=== PATIENT | male | born 1965 | race Two or more races ===

== ENCOUNTER 2016-07-24 01:54 | Inpatient (IN) | payer BC ==
[2016-07-24] VITALS (8 sets, daily range): BP systolic 100–139; BP diastolic 61–89
[~2016-07-24] VITALS: Ht 180.3 cm; Wt 81.6 kg
[2016-07-24] MEDS ORDERED: LORazepam Inj 2mg/ml 1ml IV ONE (02:30)
[2016-07-24 03:03] LABS: BASOPHILS % (AUTO) 0.9 % (0.0-2.0); EOSINOPHILS % (AUTO) 0.2 % (0.0-3.0); LYMPHOCYTES % (AUTO) 12.4 % (20.0-45.0); MEAN CORPUSCULAR HEMOGLOBIN 28.3 PG (27.0-31.0); MEAN CORPUSCULAR HGB CONC 30.9 G/DL (32.0-36.0); MEAN CORPUSCULAR VOLUME 91 FL (80-99); MEAN PLATELET VOLUME 7.1 FL (6.5-10.1); NEUTROPHILS % (AUTO) 74.6 % (45.0-75.0); PLATELET COUNT 226 K/UL (150-450); RED BLOOD COUNT 5.45 M/UL (4.70-6.10); RED CELL DISTRIBUTION WIDTH 14.6 % (11.6-14.8)
[2016-07-24 03:15] LABS: ANION GAP 17 (5-15); CALCIUM 9.5 mg/dL (8.6-10.2); CARBON DIOXIDE 23 mEQ/L (20-30); CHLORIDE 97 mEQ/L (98-107); CREATININE 1.1 mg/dL (0.7-1.2); GLOMERULAR FILTRATION RATE > 60 mL/min (>60); HEMOLYSIS 24; POTASSIUM 4.6 mEQ/L (3.4-4.9); SODIUM 137 mEQ/L (135-145)
[2016-07-24] MEDS ORDERED: Midazolam 2mg/2ml Inj IVP ONE (04:15)
--- NOTE | 2016-07-24 05:47 | Emergency Room Report ---
History of Present Illness General Chief Complaint: Behavioral Complaint Source: Patient Present Illness HPI Patient presents stating that he has had increased paranoid feeling Palpitation Patient was clean from methamphetamines for a while and over the past 2-3 days has been on a binge He feels scared Denies any headache Denies any chest pain He did feel some mild palpitations initially Denies any vomiting or diarrhea Denies any homicidal or suicidal thoughts Allergies: Coded Allergies: No Known Allergies (Unverified , 07/24/16) Patient History Past Medical History: see triage record Pertinent Family History: none Reviewed Nursing Documentation: PMH: Agreed, PSxH: Agreed Nursing Documentation-PMH History Of Psychiatric Problem: Yes - anxiety Review of Systems All Other Systems: negative except mentioned in HPI Physical Exam Vital Signs Date Time Temp Pulse Resp B/P Pulse Ox O2 Delivery O2 Flow Rate FiO2 07/24/16 02:15 99.0 122 20 140/90 96 Room Air Sp02 EP Interpretation: reviewed, normal General Appearance: mild distress - Appears frightened and scared Head: normocephalic, atraumatic Eyes: bilateral eye EOMI, bilateral eye PERRL ENT: hearing grossly normal, normal pharynx, TMs + canals normal, uvula midline Neck: full range of motion, supple, no meningismus, no bony tend Respiratory: lungs clear, normal breath sounds, no rhonchi, no respiratory distress, no retraction, no accessory muscle use Cardiovascular #1: normal peripheral pulses, regular rate, rhythm, no edema, no gallop, no JVD, no murmur Gastrointestinal: normal bowel sounds, non tender, soft, no mass, no organomegaly, non-distended, no guarding, no hernia, no pulsatile mass, no rebound Genitourinary: no CVA tenderness Musculoskeletal: normal inspection Neurologic: oriented x3, responsive, 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 wheel 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 III-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 nml as tested, motor strength/ tone normal, sensory intact Psychiatric: no suicidal/homicidal ideation, anxious Skin: normal color, no rash, warm/dry, palpation normal Lymphatic: normal inspection, no adenopathy Medical Decision Making Diagnostic Impression: Primary Impression: Altered mental status Additional Impressions: Drug reaction Amphetamine abuse Amphetamine adverse reaction ER Course Patient had blood work obtained Is deemed to be complex requiring IV examination and hydration Patient received benzodiazepines Has done better however friend and family are here and the patient still feels uncomfortable Patient has further hydration obtained And will have continued inpatient care Labs Test 07/24/16 02:30 White Blood Count 7.0 K/UL (4.8-10.8) Red Blood Count 5.45 M/UL (4.70-6.10) Hemoglobin 15.4 G/DL (14.2-18.0) Hematocrit 49.9 % (42.0-52.0) Mean Corpuscular Volume 91 FL (80-99) Mean Corpuscular Hemoglobin 28.3 PG (27.0-31.0) Mean Corpuscular Hemoglobin Concent 30.9 G/DL (32.0-36.0) Red Cell Distribution Width 14.6 % (11.6-14.8) Platelet Count 226 K/UL (150-450) Mean Platelet Volume 7.1 FL (6.5-10.1) Neutrophils (%) (Auto) 74.6 % (45.0-75.0) Lymphocytes (%) (Auto) 12.4 % (20.0-45.0) Monocytes (%) (Auto) 12.0 % (1.0-10.0) Eosinophils (%) (Auto) 0.2 % (0.0-3.0) Basophils (%) (Auto) 0.9 % (0.0-2.0) Sodium Level 137 mEQ/L (135-145) Potassium Level 4.6 mEQ/L (3.4-4.9) Chloride Level 97 mEQ/L (98-107) Carbon Dioxide Level 23 mEQ/L (20-30) Anion Gap 17 (5-15) Blood Urea Nitrogen 16 mg/dL (7-23) Creatinine 1.1 mg/dL (0.7-1.2) Estimat Glomerular Filtration Rate > 60 mL/min (>60) Glucose Level 91 mg/dL (74-106) Calcium Level 9.5 mg/dL (8.6-10.2) Rhythm Strip Diag. Results EP Interpretation: yes Rate: 88 Rhythm: NSR, no PVC's, no ectopy Last Vital Signs Date Time Temp Pulse Resp B/P Pulse Ox O2 Delivery O2 Flow Rate FiO2 07/24/16 04:40 98.6 86 14 118/82 97 Room Air Status: improved Disposition: ADMITTED INPATIENT Condition: Serious Referrals: SHERIDAN MEIER MD (PCP) JEFFRY SHAHID D.O. Jul 24, 2016 05:47
[2016-07-24] MEDS ORDERED: METHADONE HCL10 MG PO (07:47)
[2016-07-24] MEDS ORDERED: LORazepam 1mg tab ORAL PRN (09:00)
--- NOTE | 2016-07-24 09:01 | Consultation ---
History of Present Illness General Date patient seen: Jul 24, 2016 Chief Complaint: Behavioral Complaint Present Illness Allergies: Coded Allergies: No Known Allergies (Unverified , 07/24/16) Medication History Scheduled Methadone Hcl* (Methadone*), 10 MG PO DAILY, (Reported) Patient History Healthcare decision maker Resuscitation status Advanced Directive on File Physical Exam Last 24 Hour Vital Signs Date Time Temp Pulse Resp B/P Pulse Ox O2 Delivery O2 Flow Rate FiO2 07/24/16 07:59 98.6 79 16 120/80 97 Room Air 07/24/16 07:57 98.6 79 16 120/80 97 Room Air 07/24/16 04:40 98.6 86 14 118/82 97 Room Air 07/24/16 03:35 98.3 83 16 135/87 100 Room Air 07/24/16 02:30 98.7 87 18 139/89 99 Room Air 07/24/16 02:15 99.0 122 20 140/90 96 Room Air Intake and Output 07/23/16 07/24/16 19:00 07:00 Intake Total 2000 ml Output Total 0 ml Balance 2000 ml Intake IV Total 2000 ml Output Urine Total 0 ml Laboratory Tests Test 07/24/16 02:30 White Blood Count 7.0 K/UL (4.8-10.8) Red Blood Count 5.45 M/UL (4.70-6.10) Hemoglobin 15.4 G/DL (14.2-18.0) Hematocrit 49.9 % (42.0-52.0) Mean Corpuscular Volume 91 FL (80-99) Mean Corpuscular Hemoglobin 28.3 PG (27.0-31.0) Mean Corpuscular Hemoglobin Concent 30.9 G/DL (32.0-36.0) L Red Cell Distribution Width 14.6 % (11.6-14.8) Platelet Count 226 K/UL (150-450) Mean Platelet Volume 7.1 FL (6.5-10.1) Neutrophils (%) (Auto) 74.6 % (45.0-75.0) Lymphocytes (%) (Auto) 12.4 % (20.0-45.0) L Monocytes (%) (Auto) 12.0 % (1.0-10.0) H Eosinophils (%) (Auto) 0.2 % (0.0-3.0) Basophils (%) (Auto) 0.9 % (0.0-2.0) Sodium Level 137 mEQ/L (135-145) Potassium Level 4.6 mEQ/L (3.4-4.9) Chloride Level 97 mEQ/L (98-107) L Carbon Dioxide Level 23 mEQ/L (20-30) Anion Gap 17 (5-15) H Blood Urea Nitrogen 16 mg/dL (7-23) Creatinine 1.1 mg/dL (0.7-1.2) Estimat Glomerular Filtration Rate > 60 mL/min (>60) Glucose Level 91 mg/dL (74-106) Calcium Level 9.5 mg/dL (8.6-10.2) Height (Feet): 5 Height (Inches): 11.00 Weight (Pounds): 170 Assessment/Plan Problem List: (1) Methamphetamine abuse ICD Codes: F15.10 - Other stimulant abuse, uncomplicated SNOMED: 326872244 (2) Altered mental status Assessment & Plan: seen dictated ICD Codes: R41.82 - Altered mental status, unspecified SNOMED: 280784009 ANTOINE JIMENEZ PLeti Jul 24, 2016 09:01
[2016-07-24] MEDS ORDERED: Miralax 17gm pkt ORAL PRN (09:30)
[2016-07-24] MEDS ORDERED: Zolpidem 5mg tab ORAL PRN (09:30)
[2016-07-24] MEDS ORDERED: LORazepam Inj 2mg/ml 1ml IV PRN (09:30)
[2016-07-24] MEDS ORDERED: Morphine Sulfate 2mg/ml Inj IVP PRN (09:30)
[2016-07-24] MEDS ORDERED: Mylanta II UD 30ml ORAL PRN (09:30)
--- NOTE | 2016-07-24 10:02 | Consultation ---
Consult Note Consult Note HPI Patient presents stating that he has had increased paranoid feeling Palpitation Patient was clean from methamphetamines for a while and over the past 2-3 days has been on a binge He feels scared Denies any headache Denies any chest pain He did feel some mild palpitations initially Denies any vomiting or diarrhea Denies any homicidal or suicidal thoughts patient examined- interviewed, discussed with blower installer/Plan Status: Dehydration- Amphetamine abuse leading to above Sxs h/o Left Ventricular Aneurysm repair 1998 at [facility] Plan: Hydration- monitor lytes and renal parameters NATALIE HILL Jul 24, 2016 10:02
[2016-07-24] MEDS: D5NS 1,000 ML IV SCH (11:02)
[2016-07-24 12:46] LABS: APPEARANCE,URINE CLEAR; KETONES,URINE 3+ (NEGATIVE); LEUKOCYTE ESTERASE ,URINE NEGATIVE (NEGATIVE); NITRITE,URINE NEGATIVE (NEGATIVE); PH,URINE 6 (4.5-8.0); PROTEIN,URINE NEGATIVE (NEGATIVE); UROBILINOGEN,URINE NORMAL MG/DL (0.0-1.0)
[2016-07-24 12:58] LABS: BACTERIA,URINE OCCASIONAL /HPF; MUCUS,URINE OCCASIONAL /LPF (NONE/OCC); SQUAMOUS EPITHELIAL CELL,UR OCCASIONAL /LPF (NONE/OCC); WBC,URINE 0-2 /HPF (0 - 0)
--- NOTE | 2016-07-24 16:15 | Consultation ---
History of Present Illness General Date patient seen: Jul 24, 2016 Chief Complaint: Behavioral Complaint Referring physician: Best Reason for Consultation: inpatient management Present Illness HPI 50 year old male with hx of psychiatric disorder, Amphetmine use, presented to ER with CC of Palpitation He feels scared, Denies any vomiting or diarrhea,k Denies any homicidal or suicidal thoughts. He is admitted for further treatment. Allergies: Coded Allergies: No Known Allergies (Unverified , 07/24/16) Medication History Scheduled Methadone Hcl* (Methadone*), 10 MG PO DAILY, (Reported) Patient History Healthcare decision maker Resuscitation status Full Code Advanced Directive on File No Past Medical/Surgical History Past Medical/Surgical History: (1) Amphetamine abuse Review of Systems All Other Systems: negative except mentioned in HPI Physical Exam General Appearance: WD/WN, no apparent distress Lines, tubes and drains: peripheral HEENT: normocephalic, atraumatic Neck: non-tender, normal alignment Respiratory/Chest: chest wall non-tender, lungs clear Cardiovascular/Chest: normal peripheral pulses, regular rhythm Abdomen: normal bowel sounds Genitourinary/Rectal: normal genital exam Last 24 Hour Vital Signs Date Time Temp Pulse Resp B/P Pulse Ox O2 Delivery O2 Flow Rate FiO2 07/24/16 14:47 97.7 07/24/16 12:00 97.7 79 18 113/65 95 Room Air 07/24/16 09:27 97.7 78 17 115/74 98 Room Air 07/24/16 07:59 98.6 79 16 120/80 97 Room Air 07/24/16 07:57 98.6 79 16 120/80 97 Room Air 07/24/16 04:40 98.6 86 14 118/82 97 Room Air 07/24/16 03:35 98.3 83 16 135/87 100 Room Air 07/24/16 02:30 98.7 87 18 139/89 99 Room Air 07/24/16 02:15 99.0 122 20 140/90 96 Room Air Intake and Output 07/23/16 07/24/16 19:00 07:00 Intake Total 2000 ml Output Total 0 ml Balance 2000 ml IV Total 2000 ml Output Urine Total 0 ml Laboratory Tests Test 07/24/16 02:30 07/24/16 12:24 White Blood Count 7.0 K/UL (4.8-10.8) Red Blood Count 5.45 M/UL (4.70-6.10) Hemoglobin 15.4 G/DL (14.2-18.0) Hematocrit 49.9 % (42.0-52.0) Mean Corpuscular Volume 91 FL (80-99) Mean Corpuscular Hemoglobin 28.3 PG (27.0-31.0) Mean Corpuscular Hemoglobin Concent 30.9 G/DL (32.0-36.0) L Red Cell Distribution Width 14.6 % (11.6-14.8) Platelet Count 226 K/UL (150-450) Mean Platelet Volume 7.1 FL (6.5-10.1) Neutrophils (%) (Auto) 74.6 % (45.0-75.0) Lymphocytes (%) (Auto) 12.4 % (20.0-45.0) L Monocytes (%) (Auto) 12.0 % (1.0-10.0) H Eosinophils (%) (Auto) 0.2 % (0.0-3.0) Basophils (%) (Auto) 0.9 % (0.0-2.0) Sodium Level 137 mEQ/L (135-145) Potassium Level 4.6 mEQ/L (3.4-4.9) Chloride Level 97 mEQ/L (98-107) L Carbon Dioxide Level 23 mEQ/L (20-30) Anion Gap 17 (5-15) H Blood Urea Nitrogen 16 mg/dL (7-23) Creatinine 1.1 mg/dL (0.7-1.2) Estimat Glomerular Filtration Rate > 60 mL/min (>60) Glucose Level 91 mg/dL (74-106) Calcium Level 9.5 mg/dL (8.6-10.2) Urine Color Yellow Urine Appearance Clear Urine pH 6 (4.5-8.0) Urine Specific [place] 1.020 (1.005-1.035) Urine Protein Negative (NEGATIVE) Urine Glucose (UA) Negative (NEGATIVE) Urine Ketones 3+ (NEGATIVE) H Urine Occult Blood 1+ (NEGATIVE) H Urine Nitrite Negative (NEGATIVE) Urine Bilirubin Negative (NEGATIVE) Urine Urobilinogen Normal MG/DL (0.0-1.0) Urine Leukocyte Esterase Negative (NEGATIVE) Urine RBC 2-4 /HPF (0 - 0) H Urine WBC 0-2 /HPF (0 - 0) Urine Squamous Epithelial Cells Occasional /LPF Urine Bacteria Occasional /HPF (NONE) Urine Mucus Occasional /LPF Urine Opiates Screen Negative (NEGATIVE) Urine Barbiturates Screen Negative (NEGATIVE) Phencyclidine (PCP) Screen Negative (NEGATIVE) Urine Amphetamines Screen Positive (NEGATIVE) H Urine Benzodiazepines Screen Positive (NEGATIVE) H Urine Cocaine Screen Negative (NEGATIVE) Urine Marijuana (THC) Screen Negative (NEGATIVE) Height (Feet): 5 Height (Inches): 11.00 Weight (Pounds): 180 Medications Current Medications Medications (Trade) Dose Ordered Sig/Britany Route PRN Reason Start Time Stop Time Status Last Admin Dose Admin Acetaminophen (Tylenol) 650 mg Q4H PRN ORAL fever 07/24/16 09:30 08/23/16 09:29 Dextrose STAT PRN IV Hypoglycemia 07/24/16 09:30 08/23/16 09:29 Dextrose/Sodium Chloride (D5ns) 1,000 ml @ 75 mls/hr [id number] IV 07/24/16 10:50 08/23/16 10:49 07/24/16 11:02 Gabapentin (Neurontin) 100 mg THREE TIMES A DAY ORAL 07/24/16 10:00 08/23/16 09:59 07/24/16 13:48 Influenza Virus Vaccine (Flu Vaccine) 0.5 ml ONCE ONCE IM 07/24/16 16:30 07/24/16 16:31 Lorazepam (Ativan 2mg/ml 1ml) 0.5 mg Q4H PRN IV For Anxiety 07/24/16 09:30 07/31/16 09:29 Lorazepam (Ativan) 2 mg Q4H PRN ORAL AGITATION 07/24/16 09:00 07/31/16 08:59 Morphine Sulfate (Morphine Sulfate) 1 mg Q4H PRN IVP For Pain 07/24/16 09:30 07/31/16 09:29 Ondansetron HCl (Zofran) 4 mg Q6H PRN IVP Nausea & Vomiting 07/24/16 09:30 08/23/16 09:29 Polyethylene Glycol (Miralax) 17 gm HSPRN PRN ORAL Constipation 07/24/16 09:30 08/23/16 09:29 Zolpidem Tartrate (Ambien) 5 mg HSPRN PRN ORAL Insomnia 07/24/16 09:30 08/23/16 09:29 Assessment/Plan Problem List: (1) Altered mental status ICD Codes: R41.82 - Altered mental status, unspecified SNOMED: 235128498 (2) Amphetamine adverse reaction ICD Codes: T43.625A - Adverse effect of amphetamines, initial encounter SNOMED: 231266102 Assessment/Plan symptomatic treatment psych evaluation check electrolytes. EDWARD ALFARO Jul 24, 2016 16:15
[2016-07-24] MEDS ORDERED: Influenza Virus Vaccine 0.5ml IM ONE (16:30)
--- NOTE | 2016-07-24 18:55 | Consultation ---
Consult Note Consult Note NEUROLOGY CONSULTATION: Full note dictated #[id number] 50 y/o, RH, HM with PH of HIV disease, left ventricular aneurysm s/p surgery and meth addiction. Was hospitalized yesterday after a few days of binging on meth followed by paranoia and palpitations. Feels that he back to his normal self now. ON EXAM: Normal neurologic exam except for loss of DTRs. IMPRESSION: Meth intoxication. REC: Patient informed about the ills of meth use. Araceli Candelaria M.D., M.S.P.H. ARACELI CANDELARIA Jul 24, 2016 18:55
[2016-07-25] MEDS: D5NS 1,000 ML IV SCH ×3 (00:11→17:44)
--- NOTE | 2016-07-25 02:17 | History and Physical Report ---
DATE OF ADMISSION: 07/24/2016 REASON FOR ADMISSION AND HISTORY OF PRESENT ILLNESS: Possible drug reaction and dehydration. The patient is also positive for methamphetamines, and very confused and paranoid, a kind of . PAST MEDICAL HISTORY: Significant for drug abuse, neuropathy, paranoia, and CAD. PAST SURGICAL HISTORY: appendectomy. CABG. MEDICATIONS: . ALLERGIES: No known allergies. FAMILY HISTORY: Noncontributory. SOCIAL HISTORY: History of smoking, history of dug abuse, and alcohol abuse. REVIEW OF SYSTEMS: HEENT: Denies headaches. Respiratory: Denies shortness of breath. Denies cough. Cardiovascular: Denies chest pain. Gastrointestinal: Denies nausea, vomiting, or diarrhea. Extremities: Denies pain. Central Nervous System: Denies change in vision or speech pattern, but she is very confused. PHYSICAL EXAMINATION: VITAL SIGNS: Temperature is 98.2 degrees, pulse 79, and blood pressure 120/80. HEENT: PERRLA. NECK: Supple. No lymphadenopathy. CHEST: Clear to auscultation. GI: Soft, nontender, and nondistended. No organomegaly. EXTREMITIES: No edema. Moves all four extremities. NEUROLOGIC: Sensory is intact to touch. Reflexes are equal on both sides. Oriented to name only. LABORATORY DATA: WBC of 7, hemoglobin 15.4, and platelets of 226,000. Sodium 137, potassium 4.6, BUN 16, creatinine 1.1. ASSESSMENT: 1. Altered mental status, could be due to drug abuse. 2. Paranoia, could be also due to methamphetamine use. 3. History of coronary artery disease. I have asked Dr. Temple, Dr. Candelaria, Dr. Zhang, , Dr. Cates, and Dr. Ram to see the patient to rule out any infectious disease and for pain control and rule out any pneumonia at this point. Micha Jewell M.D. DR: EVARISTO JOB#: [id number] CC:
--- NOTE | 2016-07-25 02:48 | Consultation ---
DATE OF CONSULTATION: 07/24/2016 NEUROLOGY CONSULTATION: CONSULTING PHYSICIAN: Christiano Candelaria M.D. REQUESTING PHYSICIAN: Micha Jewell M.D. HISTORY: Mr. Tanmay Marquez is a 50-year-old, right-handed gentleman, who does have a prior history of HIV disease, which is under control with anti-retroviral drugs, a left ventricle aneurysm - status post surgery, and numerous years of methamphetamine addiction. He was binging on methamphetamine for a few days and this was followed by paranoia and palpitations. As a result of that, he was brought into the [facility] Emergency Room and was admitted. He feels much better today and feels that he is back to his normal self. Over the years, he has had multiple episodes of paranoia associated with methamphetamine use. He denies any neurological symptoms like weakness on one side or the other, numbness on one side or the other, problems with speech, problems with language, problems with vision, or any other neurological symptoms. PAST MEDICAL HISTORY: Significant for HIV disease for numerous years. Left ventricle aneurysm - status post surgery, and methamphetamine addiction for numerous years. FAMILY HISTORY: His grandmother had high blood pressure and heart disease when she was older. PERSONAL HISTORY: Home: He lives in a sober living home. 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 Habits: He denies use of tobacco or alcohol, but has had a problem with methamphetamine for numerous years. PRESENT MEDICATIONS: Include gabapentin 100 mg three times a day, Tylenol p.r.n., morphine p.r.n., MiraLax p.r.n., Zofran p.r.n., Ambien p.r.n. and Ativan p.r.n. PHYSICAL EXAMINATION: GENERAL: He is a well-developed, well-nourished, and pleasant gentleman, lying in bed, in no acute distress. VITAL SIGNS: Pulse is 78 per minute, blood pressure 107/64 mmHg, respirations 16 per minute, and temperature 98.1 degrees Fahrenheit. HEAD: Normocephalic and atraumatic. NECK: No neck rigidity was observed. EENT: Examination benign. NEUROLOGICAL EXAMINATION: MENTAL STATUS EXAMINATION: He was alert and awake. He was oriented to person, place, and time. He was able to recall 3/3 words immediately after 1 minute and 3 minutes. He was able to remember presidents Obama through Kleberg. His mathematical skills were good. His visuospatial function was preserved. SPEECH: He had no dysarthria. LANGUAGE: He had no aphasia. CRANIAL NERVE EXAMINATION: II: The visual gilmore were intact to confrontation testing. III, IV & : The external ocular movements were full and the pupils 3 mm in diameter, equal round, regular, and reactive to light. V: He had normal facial sensations and the temporales, masseters, and pterygoids functioned normally. VII: He had normal facial expressions and no facial asymmetry. VIII: He was able to hear well bilaterally and had no nystagmus. IX: The palate moved symmetrically on phonation. X: He had no hoarseness of voice. XI: The sternocleidomastoids and trapezii functioned normally. XII: The tongue was in the midline without any fasciculations or atrophy. MOTOR SYSTEM: The tone was normal in all four extremities. Examination of muscle mass revealed no focal wasting. Examination of power revealed grade 5/5 power in all muscle groups tested. SENSORY EXAMINATION: He has intact sensations to pinprick, light touch and graphesthesia. COORDINATION: He performed well on pepube-cl-reuv and tasy-bx-hfyb testing. On Romberg test, he swayed but did not fall to one side or the other. REFLEXES: 0 at the biceps, triceps, brachioradialis, knees, and ankles. The plantar responses were flexor bilaterally. STANCE: He had a minimally wide-based, but stable stance. GAIT: He walked with a minimally wide-based, but stable gait. DIAGNOSTIC IMPRESSION: 1. Mr. Tanmay Marquez is a 50-year-old, right-handed, gentleman, who does have prior history of human-immunodeficiency virus disease, left ventricular aneurysm - status post surgical repair, and methamphetamine use for numerous years, who was binging on methamphetamine a few days prior to admission and then came in with paranoia and palpitations. 2. He feels much better today and feels he is back to his normal self. 3. The neurological examination is essentially benign except for globally absent deep tendon reflexes and a swaying on Romberg test. 4. Laboratory data revealed a relatively normal CBC, and relatively normal chemistry panel. No signs of urinary tract infection were seen. However the urine toxicology screen is positive for amphetamines and benzodiazepines. 5. The patient's history and neurological examination are most compatible with methamphetamine use associated with paranoia and palpitations that have now resolved. RECOMMENDATIONS: At this point in time, no further neurological intervention is required. Thank you for entrusting me with the care of Mr. Marquez. I shall follow him with you. Christiano Candelaria M.D., M.S.P.H. DR: Eliecer JOB#: [id number] MTDD
[2016-07-25 03:16] VITALS: BP 102/64
--- NOTE | 2016-07-25 03:27 | Consultation ---
DATE OF CONSULTATION: 07/24/2016 PAIN MANAGEMENT CONSULTATION: CONSULTING PHYSICIAN: Nae Rand M.D. REFERRING PHYSICIAN: Micha Jewell M.D. PHYSICIAN TR[employer]ION SECRETARY: Owen Decker CHIEF COMPLAINT: Methamphetamine abuse. HISTORY OF PRESENT ILLNESS: This is a 50-year-old male who is being seen on the Med/Surg floor of [facility]. The patient is in bed in no acute distress at this time and reports that he has been sober from methamphetamine for a while, however over the past 2 to 3 days he has been on methamphetamine abuse binge and started to have palpitations and paranoia and admitted to the hospital and we were consulted so patient would have adequate control while here in the hospital. PAST MEDICAL HISTORY: Left ventricular aneurysm. PAST SURGICAL HISTORY: Open heart surgeries. SOCIAL HISTORY: Methamphetamine abuse. ALLERGIES: No known drug allergies. MEDICATIONS: Denies. REVIEW OF SYSTEMS: Denies rash, fever, chills, sweating, dizziness, drowsiness, change in hearing or weight. No shortness of breath or chest pain. No nausea, vomiting, diarrhea, blood in the stool or urine. No bowel or bladder incontinence. He has been complaining of palpitations and paranoia, methamphetamine abuse. PHYSICAL EXAMINATION: GENERAL: Alert, awake and oriented x3. VITAL SIGNS: Blood pressure 120/80, heart rate 79, oxygen 97%, respiratory rate 16, temperature is 98.6 degrees Fahrenheit. HEENT: PERRLA. NECK: Range of motion is full in all directions. No tenderness to palpation. no adenopathy LUNGS: Clear. HEART: S1 S2 Regular. ABDOMEN: Benign. BACK: Range of motion is full on flexion extension. No tenderness to palpation of paraspinal, tarpezius or rhomboid muscles. EXTREMITIES: Upper and lower extremity range of motion is full in directions Motor is intact. No cyanosis. No clubbing. No edema. Sensory intact no adenopathy. ASSESSMENT AND PLAN: This is a 50-year-old male with methamphetamine abuse, altered mental status. The patient will be started on Ativan 2 mg tablet every 4 hours as needed for agitation and Neurontin 100 mg tablet TID. The patient was discussed with Dr. Rand and Dr. Rand concurred. We will follow the patient. Thank you very much for the courtesy of this consultation. aNe Rand M.D. UNRULY Willard DR: SAMMY JOB#: [id number] CC: STEVE
[2016-07-25 04:00] VITALS: BP 111/63
[2016-07-25 08:00] VITALS: BP 107/72
[2016-07-25 08:24] LABS: BASOPHILS % (AUTO) 1.3 % (0.0-2.0); EOSINOPHILS % (AUTO) 1.3 % (0.0-3.0); LYMPHOCYTES % (AUTO) 25.5 % (20.0-45.0); MEAN CORPUSCULAR HEMOGLOBIN 28.3 PG (27.0-31.0); MEAN CORPUSCULAR VOLUME 86 FL (80-99); MONOCYTES % (AUTO) 17.1 % (1.0-10.0); NEUTROPHILS % (AUTO) 54.9 % (45.0-75.0); PLATELET COUNT 160 K/UL (150-450); RED BLOOD COUNT 4.68 M/UL (4.70-6.10); RED CELL DISTRIBUTION WIDTH 11.7 % (11.6-14.8)
[2016-07-25 08:32] LABS: CRP QUANT 0.6 mg/dL (< 0.5); PHOSPHORUS 2.7 mg/dL (2.5-4.8); URIC ACID 6.3 mg/dL (3.0-7.5)
[2016-07-25 08:40] LABS: THYROID STIMULATING HORMONE 0.611 uIU/mL (0.300-4.500)
[2016-07-25 08:44] LABS: ALANINE AMINOTRANSFERASE 27 U/L (3-41); ALBUMIN/GLOBULIN RATIO 0.8 (1.0-2.7); ANION GAP 15 (5-15); ASPARTATE AMINO TRANSFERASE 33 U/L (5-40); CALCIUM 8.5 mg/dL (8.6-10.2); CARBON DIOXIDE 23 mEQ/L (20-30); CHLORIDE 106 mEQ/L (98-107); CHOLESTEROL 123 mg/dL (< 200); CHOLESTEROL/HDL RATIO 3.6 (3.3-4.4); CREATININE 0.8 mg/dL (0.7-1.2); GLOMERULAR FILTRATION RATE > 60 mL/min (>60); HEMOLYSIS 4; LDL CHOLESTEROL (CALC.) 78 mg/dL (60-99); POTASSIUM 4.1 mEQ/L (3.4-4.9); SODIUM 144 mEQ/L (135-145); TOTAL PROTEIN 7.4 g/dL (6.6-8.7)
--- NOTE | 2016-07-25 08:59 | General Progress Note ---
Assessment/Plan Problem List: (1) Methamphetamine abuse ICD Codes: F15.10 - Other stimulant abuse, uncomplicated SNOMED: 841106484 (2) Altered mental status Assessment & Plan: The patient will be continued on Ativan and Neurontin The patient was discussed with Dr. Rand and Dr. Rand concurred. ICD Codes: R41.82 - Altered mental status, unspecified SNOMED: 950624400 Subjective Date patient seen: Jul 25, 2016 Time patient seen: 07:15 - am Allergies: Coded Allergies: No Known Allergies (Unverified , 07/24/16) Subjective REVIEW OF SYSTEMS: Denies rash, fever, chills, sweating, dizziness, drowsiness, no change in hearing or weight. No shortness of breath or chest pain. No nausea, vomiting, diarrhea, blood in the stool or urine. No bowel or bladder incontinence. He has been complaining of palpitations and paranoia, methamphetamine abuse. SUBJECTIVE: Patient reports that he is doing well. Objective Last 24 Hour Vital Signs Date Time Temp Pulse Resp B/P Pulse Ox O2 Delivery O2 Flow Rate FiO2 07/25/16 08:00 97.5 68 20 107/72 95 07/25/16 04:00 97.4 80 20 111/63 97 Room Air 07/25/16 03:16 97.5 77 19 102/64 98 Room Air 07/24/16 20:00 97.7 75 20 100/61 95 Room Air 07/24/16 16:19 98.1 78 16 107/64 96 Room Air 07/24/16 14:47 97.7 07/24/16 12:00 97.7 79 18 113/65 95 Room Air 07/24/16 09:27 97.7 78 17 115/74 98 Room Air Intake and Output 07/24/16 07/25/16 19:00 07:00 Intake Total 615 ml 990 ml Output Total 600 ml Balance 15 ml 990 ml Intake Oral 240 ml 240 ml IV Total 375 ml 750 ml Output Urine Total 600 ml # Voids 1 1 # Bowel Movements 1 1 Laboratory Tests 07/24/16 12:24: Urine Color Yellow, Urine Appearance Clear, Urine pH 6, Urine Specific [place] 1.020, Urine Protein Negative, Urine Glucose (UA) Negative, Urine Ketones 3+H, Urine Occult Blood 1+H, Urine Nitrite Negative, Urine Bilirubin Negative, Urine Urobilinogen Normal, Urine Leukocyte Esterase Negative, Urine RBC 2-4H, Urine WBC 0-2, Urine Squamous Epithelial Cells Occasional, Urine Bacteria Occasional, Urine Mucus Occasional, Urine Opiates Screen Negative, Urine Barbiturates Screen Negative, Phencyclidine (PCP) Screen Negative, Urine Amphetamines Screen PositiveH, Urine Benzodiazepines Screen PositiveH, Urine Cocaine Screen Negative , Urine Marijuana (THC) Screen Negative 07/25/16 07:05: White Blood Count 4.0L, Red Blood Count 4.68L, Hemoglobin 13.2L, Hematocrit 40.0L, Mean Corpuscular Volume 86, Mean Corpuscular Hemoglobin 28.3, Mean Corpuscular Hemoglobin Concent 33.0, Red Cell Distribution Width 11.7, Platelet Count 160, Mean Platelet Volume 8.0, Neutrophils (%) (Auto) 54.9, Lymphocytes (% ) (Auto) 25.5, Monocytes (%) (Auto) 17.1H, Eosinophils (%) (Auto) 1.3, Basophils (%) (Auto) 1.3, Sodium Level 144, Potassium Level 4.1, Chloride Level 106, Carbon Dioxide Level 23, Anion Gap 15, Blood Urea Nitrogen 10, Creatinine 0.8, Estimat Glomerular Filtration Rate > 60, Glucose Level 89, Uric Acid 6.3, Calcium Level 8.5L, Phosphorus Level 2.7, Magnesium Level 2.0, Total Bilirubin 0.7, Gamma Glutamyl Transpeptidase 19, Aspartate Amino Transf (AST/SGOT) 33, Alanine Aminotransferase (ALT/SGPT) 27, Alkaline Phosphatase 69, Total Creatine Kinase 198H, C-Reactive Protein, Quantitative 0.6H, Total Protein 7.4, Albumin 3.4L, Globulin 4.0, Albumin/Globulin Ratio 0.8L, Triglycerides Level 55, Cholesterol Level 123, LDL Cholesterol 78, HDL Cholesterol 34, Cholesterol/HDL Ratio 3.6, Thyroid Stimulating Hormone (TSH) 0.611 Height (Feet): 5 Height (Inches): 11.00 Weight (Pounds): 180 Objective PHYSICAL EXAMINATION: GENERAL: Alert, awake and oriented x3. HEENT: PERRLA. NECK: Range of motion is full in all directions. No tenderness. LUNGS: Clear. HEART: Regular. ABDOMEN: Benign. EXTREMITIES: No cyanosis. No clubbing. No edema. ZEANTOINE DARDEN Jul 25, 2016 08:59
--- NOTE | 2016-07-25 11:36 | General Progress Note ---
Assessment/Plan Problem List: (1) Altered mental status ICD Codes: R41.82 - Altered mental status, unspecified SNOMED: 380401281 (2) Amphetamine adverse reaction ICD Codes: T43.625A - Adverse effect of amphetamines, initial encounter SNOMED: 292763626 (3) Amphetamine abuse ICD Codes: F15.10 - Other stimulant abuse, uncomplicated SNOMED: 03723917 (4) Methamphetamine abuse ICD Codes: F15.10 - Other stimulant abuse, uncomplicated SNOMED: 095625819 Assessment/Plan afebrile ams confused drug abuse reviewed chart and labs Subjective Constitutional: Reports: no symptoms HEENT: Reports: no symptoms Allergies: Coded Allergies: No Known Allergies (Unverified , 07/24/16) Objective Last 24 Hour Vital Signs Date Time Temp Pulse Resp B/P Pulse Ox O2 Delivery O2 Flow Rate FiO2 07/25/16 08:00 97.5 68 20 107/72 95 07/25/16 04:00 97.4 80 20 111/63 97 Room Air 07/25/16 03:16 97.5 77 19 102/64 98 Room Air 07/24/16 20:00 97.7 75 20 100/61 95 Room Air 07/24/16 16:19 98.1 78 16 107/64 96 Room Air 07/24/16 14:47 97.7 07/24/16 12:00 97.7 79 18 113/65 95 Room Air Intake and Output 07/24/16 07/25/16 19:00 07:00 Intake Total 615 ml 1065 ml Output Total 600 ml Balance 15 ml 1065 ml Intake Oral 240 ml 240 ml IV Total 375 ml 825 ml Output Urine Total 600 ml # Voids 1 1 # Bowel Movements 1 1 Laboratory Tests 07/24/16 12:24: Urine Color Yellow, Urine Appearance Clear, Urine pH 6, Urine Specific [place] 1.020, Urine Protein Negative, Urine Glucose (UA) Negative, Urine Ketones 3+H, Urine Occult Blood 1+H, Urine Nitrite Negative, Urine Bilirubin Negative, Urine Urobilinogen Normal, Urine Leukocyte Esterase Negative, Urine RBC 2-4H, Urine WBC 0-2, Urine Squamous Epithelial Cells Occasional, Urine Bacteria Occasional, Urine Mucus Occasional, Urine Opiates Screen Negative, Urine Barbiturates Screen Negative, Phencyclidine (PCP) Screen Negative, Urine Amphetamines Screen PositiveH, Urine Benzodiazepines Screen PositiveH, Urine Cocaine Screen Negative , Urine Marijuana (THC) Screen Negative 07/25/16 07:05: White Blood Count 4.0L, Red Blood Count 4.68L, Hemoglobin 13.2L, Hematocrit 40.0L, Mean Corpuscular Volume 86, Mean Corpuscular Hemoglobin 28.3, Mean Corpuscular Hemoglobin Concent 33.0, Red Cell Distribution Width 11.7, Platelet Count 160, Mean Platelet Volume 8.0, Neutrophils (%) (Auto) 54.9, Lymphocytes (% ) (Auto) 25.5, Monocytes (%) (Auto) 17.1H, Eosinophils (%) (Auto) 1.3, Basophils (%) (Auto) 1.3, Sodium Level 144, Potassium Level 4.1, Chloride Level 106, Carbon Dioxide Level 23, Anion Gap 15, Blood Urea Nitrogen 10, Creatinine 0.8, Estimat Glomerular Filtration Rate > 60, Glucose Level 89, Uric Acid 6.3, Calcium Level 8.5L, Phosphorus Level 2.7, Magnesium Level 2.0, Total Bilirubin 0.7, Gamma Glutamyl Transpeptidase 19, Aspartate Amino Transf (AST/SGOT) 33, Alanine Aminotransferase (ALT/SGPT) 27, Alkaline Phosphatase 69, Total Creatine Kinase 198H, C-Reactive Protein, Quantitative 0.6H, Total Protein 7.4, Albumin 3.4L, Globulin 4.0, Albumin/Globulin Ratio 0.8L, Triglycerides Level 55, Cholesterol Level 123, LDL Cholesterol 78, HDL Cholesterol 34, Cholesterol/HDL Ratio 3.6, Thyroid Stimulating Hormone (TSH) 0.611 Height (Feet): 5 Height (Inches): 11.00 Weight (Pounds): 180 EENT: PERRL/EOMI Neck: supple Cardiovascular: normal rate Respiratory/Chest: lungs clear Micha Jewell MD Jul 25, 2016 11:36
[2016-07-25 12:00] VITALS: BP 111/71
--- NOTE | 2016-07-25 12:01 | Neurology Progress Note ---
Interim History Interim History Interim History Mr. Marquez feels well. The mind is clear. The body is strong. He has had no palpitations. He has had no paranoia. He denies any new neurologic symptoms. Review of Systems Neuro Review of Systems Benign. Objective Physical Exam Last Vital Signs Date Time Temp Pulse Resp B/P Pulse Ox O2 Delivery O2 Flow Rate FiO2 07/25/16 08:00 97.5 68 20 107/72 95 07/25/16 04:00 Room Air Laboratory Tests Test 07/24/16 12:24 07/25/16 07:05 Urine Color Yellow Urine Appearance Clear Urine pH 6 (4.5-8.0) Urine Specific [place] 1.020 (1.005-1.035) Urine Protein Negative (NEGATIVE) Urine Glucose (UA) Negative (NEGATIVE) Urine Ketones 3+ (NEGATIVE) H Urine Occult Blood 1+ (NEGATIVE) H Urine Nitrite Negative (NEGATIVE) Urine Bilirubin Negative (NEGATIVE) Urine Urobilinogen Normal MG/DL (0.0-1.0) Urine Leukocyte Esterase Negative (NEGATIVE) Urine RBC 2-4 /HPF (0 - 0) H Urine WBC 0-2 /HPF (0 - 0) Urine Squamous Epithelial Cells Occasional /LPF Urine Bacteria Occasional /HPF (NONE) Urine Mucus Occasional /LPF Urine Opiates Screen Negative (NEGATIVE) Urine Barbiturates Screen Negative (NEGATIVE) Phencyclidine (PCP) Screen Negative (NEGATIVE) Urine Amphetamines Screen Positive (NEGATIVE) H Urine Benzodiazepines Screen Positive (NEGATIVE) H Urine Cocaine Screen Negative (NEGATIVE) Urine Marijuana (THC) Screen Negative (NEGATIVE) White Blood Count 4.0 K/UL (4.8-10.8) L Red Blood Count 4.68 M/UL (4.70-6.10) L Hemoglobin 13.2 G/DL (14.2-18.0) L Hematocrit 40.0 % (42.0-52.0) L Mean Corpuscular Volume 86 FL (80-99) Mean Corpuscular Hemoglobin 28.3 PG (27.0-31.0) Mean Corpuscular Hemoglobin Concent 33.0 G/DL (32.0-36.0) Red Cell Distribution Width 11.7 % (11.6-14.8) Platelet Count 160 K/UL (150-450) Mean Platelet Volume 8.0 FL (6.5-10.1) Neutrophils (%) (Auto) 54.9 % (45.0-75.0) Lymphocytes (%) (Auto) 25.5 % (20.0-45.0) Monocytes (%) (Auto) 17.1 % (1.0-10.0) H Eosinophils (%) (Auto) 1.3 % (0.0-3.0) Basophils (%) (Auto) 1.3 % (0.0-2.0) Sodium Level 144 mEQ/L (135-145) Potassium Level 4.1 mEQ/L (3.4-4.9) Chloride Level 106 mEQ/L (98-107) Carbon Dioxide Level 23 mEQ/L (20-30) Anion Gap 15 (5-15) Blood Urea Nitrogen 10 mg/dL (7-23) Creatinine 0.8 mg/dL (0.7-1.2) Estimat Glomerular Filtration Rate > 60 mL/min (>60) Glucose Level 89 mg/dL (74-106) Uric Acid 6.3 mg/dL (3.0-7.5) Calcium Level 8.5 mg/dL (8.6-10.2) L Phosphorus Level 2.7 mg/dL (2.5-4.8) Magnesium Level 2.0 mg/dL (1.7-2.5) Total Bilirubin 0.7 mg/dL (0.0-1.2) Gamma Glutamyl Transpeptidase 19 U/L (8-61) Aspartate Amino Transf (AST/SGOT) 33 U/L (5-40) Alanine Aminotransferase (ALT/SGPT) 27 U/L (3-41) Alkaline Phosphatase 69 U/L (40-129) Total Creatine Kinase 198 U/L (38-174) H C-Reactive Protein, Quantitative 0.6 mg/dL (< 0.5) H Total Protein 7.4 g/dL (6.6-8.7) Albumin 3.4 g/dL (3.5-5.2) L Globulin 4.0 g/dL Albumin/Globulin Ratio 0.8 (1.0-2.7) L Triglycerides Level 55 mg/dL (< 150) Cholesterol Level 123 mg/dL (< 200) LDL Cholesterol 78 mg/dL (60-99) HDL Cholesterol 34 mg/dL (> 60) Cholesterol/HDL Ratio 3.6 (3.3-4.4) Thyroid Stimulating Hormone (TSH) 0.611 uIU/mL (0.300-4.500) Neurologic Exam Objective PHYSICAL EXAMINATION: GENERAL: He is a well-developed, well-nourished, and pleasant gentleman, lying in bed, in no acute distress. HEAD: Normocephalic and atraumatic. NECK: No neck rigidity was observed. EENT: Examination benign. NEUROLOGICAL EXAMINATION: MENTAL STATUS EXAMINATION: He was alert and awake. He was oriented to person, place, and time. He was able to recall 3/3 words immediately after 1 minute and 3 minutes. He was able to remember presidents Obama through [place]. His mathematical skills were good. His visuospatial function was preserved. SPEECH: He had no dysarthria. LANGUAGE: He had no aphasia. CRANIAL NERVE EXAMINATION: II: The visual gilmore were intact to confrontation testing. III, IV & : The external ocular movements were full and the pupils 3 mm in diameter, equal round, regular, and reactive to light. V: He had normal facial sensations and the temporales, masseters, and pterygoids functioned normally. VII: He had normal facial expressions and no facial asymmetry. VIII: He was able to hear well bilaterally and had no nystagmus. IX: The palate moved symmetrically on phonation. X: He had no hoarseness of voice. XI: The sternocleidomastoids and trapezii functioned normally. XII: The tongue was in the midline without any fasciculations or atrophy. MOTOR SYSTEM: The tone was normal in all four extremities. Examination of muscle mass revealed no focal wasting. Examination of power revealed grade 5/5 power in all muscle groups tested. SENSORY EXAMINATION: He has intact sensations to pinprick, light touch and graphesthesia. COORDINATION: He performed well on [id number] and [id number] testing. On Romberg test, he swayed but did not fall to one side or the other. REFLEXES: 0 at the biceps, triceps, brachioradialis, knees, and ankles. The plantar responses were flexor bilaterally. STANCE: He had a minimally wide-based, but stable stance. GAIT: He walked with a minimally wide-based, but stable gait. Impression/Recommendations Diagnostic Impression 1. Mr. Tanmay Marquez is a 50-year-old, right-handed, gentleman, who does have prior history of human-immunodeficiency virus disease, left ventricular aneurysm - status post surgical repair, and methamphetamine use for numerous years, who was binging on methamphetamine a few days prior to admission and then came in with paranoia and palpitations. 2. He feels much better today. There is no paranoia and he is free of palpitations. He feels he is back to his normal self. 3. The neurological examination is essentially benign except for globally absent deep tendon reflexes and a swaying on Romberg test. 4. Laboratory data revealed a relatively normal CBC, and relatively normal chemistry panel. No signs of urinary tract infection were seen. However the urine toxicology screen is positive for amphetamines and benzodiazepines. 5. The patient's history and neurological examination are most compatible with methamphetamine use associated with paranoia and palpitations that have now resolved. Recommendations 1. At this point in time, no further neurological intervention is required. 2. Mobilize rapidly. Araceli Candelaria M.D., M.S.P.ARACELI SIBLEY Jul 25, 2016 12:01
--- NOTE | 2016-07-25 12:08 | General Progress Note ---
Assessment/Plan Status: stable Assessment/Plan status: Dehydration- resolved Amphetamine abuse leading to above Sxs ( urine + for amphetamines and benzodiazepams) h/o Left Ventricular Aneurysm repair 1998 at [facility] Plan: Can DC IV- ?DC ? Drug Rehab / Psych??? Subjective ROS Limited/Unobtainable: No Allergies: Coded Allergies: No Known Allergies (Unverified , 07/24/16) Objective Last 24 Hour Vital Signs Date Time Temp Pulse Resp B/P Pulse Ox O2 Delivery O2 Flow Rate FiO2 07/25/16 08:00 97.5 68 20 107/72 95 07/25/16 04:00 97.4 80 20 111/63 97 Room Air 07/25/16 03:16 97.5 77 19 102/64 98 Room Air 07/24/16 20:00 97.7 75 20 100/61 95 Room Air 07/24/16 16:19 98.1 78 16 107/64 96 Room Air 07/24/16 14:47 97.7 Intake and Output 07/24/16 07/25/16 19:00 07:00 Intake Total 615 ml 1065 ml Output Total 600 ml Balance 15 ml 1065 ml Intake Oral 240 ml 240 ml IV Total 375 ml 825 ml Output Urine Total 600 ml # Voids 1 1 # Bowel Movements 1 1 Laboratory Tests 07/24/16 12:24: Urine Color Yellow, Urine Appearance Clear, Urine pH 6, Urine Specific [place] 1.020, Urine Protein Negative, Urine Glucose (UA) Negative, Urine Ketones 3+H, Urine Occult Blood 1+H, Urine Nitrite Negative, Urine Bilirubin Negative, Urine Urobilinogen Normal, Urine Leukocyte Esterase Negative, Urine RBC 2-4H, Urine WBC 0-2, Urine Squamous Epithelial Cells Occasional, Urine Bacteria Occasional, Urine Mucus Occasional, Urine Opiates Screen Negative, Urine Barbiturates Screen Negative, Phencyclidine (PCP) Screen Negative, Urine Amphetamines Screen PositiveH, Urine Benzodiazepines Screen PositiveH, Urine Cocaine Screen Negative , Urine Marijuana (THC) Screen Negative 07/25/16 07:05: White Blood Count 4.0L, Red Blood Count 4.68L, Hemoglobin 13.2L, Hematocrit 40.0L, Mean Corpuscular Volume 86, Mean Corpuscular Hemoglobin 28.3, Mean Corpuscular Hemoglobin Concent 33.0, Red Cell Distribution Width 11.7, Platelet Count 160, Mean Platelet Volume 8.0, Neutrophils (%) (Auto) 54.9, Lymphocytes (% ) (Auto) 25.5, Monocytes (%) (Auto) 17.1H, Eosinophils (%) (Auto) 1.3, Basophils (%) (Auto) 1.3, Sodium Level 144, Potassium Level 4.1, Chloride Level 106, Carbon Dioxide Level 23, Anion Gap 15, Blood Urea Nitrogen 10, Creatinine 0.8, Estimat Glomerular Filtration Rate > 60, Glucose Level 89, Uric Acid 6.3, Calcium Level 8.5L, Phosphorus Level 2.7, Magnesium Level 2.0, Total Bilirubin 0.7, Gamma Glutamyl Transpeptidase 19, Aspartate Amino Transf (AST/SGOT) 33, Alanine Aminotransferase (ALT/SGPT) 27, Alkaline Phosphatase 69, Total Creatine Kinase 198H, C-Reactive Protein, Quantitative 0.6H, Total Protein 7.4, Albumin 3.4L, Globulin 4.0, Albumin/Globulin Ratio 0.8L, Triglycerides Level 55, Cholesterol Level 123, LDL Cholesterol 78, HDL Cholesterol 34, Cholesterol/HDL Ratio 3.6, Thyroid Stimulating Hormone (TSH) 0.611 Height (Feet): 5 Height (Inches): 11.00 Weight (Pounds): 180 General Appearance: no apparent distress Neurologic: alert, oriented x 3 Objective PE benign NATALIE HILL Jul 25, 2016 12:08
[2016-07-25 16:00] VITALS: BP 114/72
--- NOTE | 2016-07-25 17:32 | Pulmonology Progress Note ---
Assessment/Plan Problems: (1) Altered mental status (2) Amphetamine adverse reaction Assessment/Plan Assessment/Plan improved ok to dc to drug rehab Subjective ROS Limited/Unobtainable: No Constitutional: Reports: anorexia, fatigue Cardiovascular: Reports: chest pain, palpitations Musculoskeletal: Reports: pain, stiffness Allergies: Coded Allergies: No Known Allergies (Unverified , 07/24/16) Objective Last 24 Hour Vital Signs Date Time Temp Pulse Resp B/P Pulse Ox O2 Delivery O2 Flow Rate FiO2 07/25/16 12:00 98.1 77 20 111/71 96 07/25/16 08:00 97.5 68 20 107/72 95 07/25/16 04:00 97.4 80 20 111/63 97 Room Air 07/25/16 03:16 97.5 77 19 102/64 98 Room Air 07/24/16 20:00 97.7 75 20 100/61 95 Room Air Intake and Output 07/24/16 07/25/16 18:59 06:59 Intake Total 540 ml 1065 ml Output Total 600 ml Balance -60 ml 1065 ml Intake Oral 240 ml 240 ml IV Total 300 ml 825 ml Output Urine Total 600 ml # Voids 1 1 # Bowel Movements 1 1 General Appearance: no acute distress HEENT: normocephalic, atraumatic, PERRL Respiratory/Chest: chest wall non-tender, decreased breath sounds, accessory muscle use Cardiovascular: normal peripheral pulses, normal rate, regular rhythm, no JVD Abdomen: normal bowel sounds, soft, non tender, no organomegaly, non distended Genitourinary: normal external genitalia Extremities: no cyanosis Skin: no rash, no lesions 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, no motor/sensory deficits Laboratory Tests 07/25/16 00:00: HIV-1 Antibody [Pending], HIV-2 Antibody [Pending] 07/25/16 07:05: White Blood Count 4.0L, Red Blood Count 4.68L, Hemoglobin 13.2L, Hematocrit 40.0L, Mean Corpuscular Volume 86, Mean Corpuscular Hemoglobin 28.3, Mean Corpuscular Hemoglobin Concent 33.0, Red Cell Distribution Width 11.7, Platelet Count 160, Mean Platelet Volume 8.0, Neutrophils (%) (Auto) 54.9, Lymphocytes (% ) (Auto) 25.5, Monocytes (%) (Auto) 17.1H, Eosinophils (%) (Auto) 1.3, Basophils (%) (Auto) 1.3, Sodium Level 144, Potassium Level 4.1, Chloride Level 106, Carbon Dioxide Level 23, Anion Gap 15, Blood Urea Nitrogen 10, Creatinine 0.8, Estimat Glomerular Filtration Rate > 60, Glucose Level 89, Uric Acid 6.3, Calcium Level 8.5L, Phosphorus Level 2.7, Magnesium Level 2.0, Total Bilirubin 0.7, Gamma Glutamyl Transpeptidase 19, Aspartate Amino Transf (AST/SGOT) 33, Alanine Aminotransferase (ALT/SGPT) 27, Alkaline Phosphatase 69, Total Creatine Kinase 198H, C-Reactive Protein, Quantitative 0.6H, Total Protein 7.4, Albumin 3.4L, Globulin 4.0, Albumin/Globulin Ratio 0.8L, Triglycerides Level 55, Cholesterol Level 123, LDL Cholesterol 78, HDL Cholesterol 34, Cholesterol/HDL Ratio 3.6, Thyroid Stimulating Hormone (TSH) 0.611 07/25/16 12:00: Hepatitis A IgM Antibody [Pending], Hepatitis B Surface Antigen [Pending], Hepatitis B Core IgM Antibody [Pending], Hepatitis C Antibody [Pending], HIV (1& 2) Antibody Rapid Preliminary positiveH Current Medications Medications (Trade) Dose Ordered Sig/[place] Route PRN Reason Start Time Stop Time Status Last Admin Dose Admin Acetaminophen (Tylenol) 650 mg Q4H PRN ORAL fever 07/24/16 09:30 08/23/16 09:29 Dextrose STAT PRN IV Hypoglycemia 07/24/16 09:30 08/23/16 09:29 Dextrose/Sodium Chloride (D5ns) 1,000 ml @ 75 mls/hr [id number] IV 07/24/16 10:50 08/23/16 10:49 07/25/16 00:11 Gabapentin (Neurontin) 100 mg THREE TIMES A DAY ORAL 07/24/16 10:00 08/23/16 09:59 07/24/16 13:48 Lorazepam (Ativan 2mg/ml 1ml) 0.5 mg Q4H PRN IV For Anxiety 07/24/16 09:30 07/31/16 09:29 Lorazepam (Ativan) 2 mg Q4H PRN ORAL AGITATION 07/24/16 09:00 07/31/16 08:59 Morphine Sulfate (Morphine Sulfate) 1 mg Q4H PRN IVP For Pain 07/24/16 09:30 07/31/16 09:29 Ondansetron HCl (Zofran) 4 mg Q6H PRN IVP Nausea & Vomiting 07/24/16 09:30 08/23/16 09:29 Polyethylene Glycol (Miralax) 17 gm HSPRN PRN ORAL Constipation 07/24/16 09:30 08/23/16 09:29 Zolpidem Tartrate (Ambien) 5 mg HSPRN PRN ORAL Insomnia 07/24/16 09:30 08/23/16 09:29 EDWARD ALFARO Jul 25, 2016 17:32
[2016-07-25 20:00] VITALS: BP 112/70
--- NOTE | 2016-07-25 20:57 | Consultation ---
DATE OF CONSULTATION: 07/25/2016 HEMATOLOGY/ONCOLOGY CONSULTATION NOTE CONSULTING PHYSICIAN: Jackson Lawson M.D. REQUESTING PHYSICIAN: Micha Jewell M.D. REASON FOR CONSULTATION: Evaluation of leukopenia. IDENTIFICATION DATA: Dear Dr. Micha Jewell, The patient is a pleasant 50-year-old male with past medical history, which is significant for HIV, left ventricle aneurysm status post repair, and history of methamphetamine addiction, who presented to the hospital several days ago as well, at this time comes in with methamphetamine abuse as well as complications, who underwent neurological evaluation as well as Pulmonary. He complained of palpitations as well as being scared. He was noted to have leukopenia with a white count of 4000 and hemoglobin of 13.2. Hematology service was consulted for further evaluation and treatment. PAST MEDICAL HISTORY: Drug abuse, . PAST SURGICAL HISTORY: CABG and appendectomy. MEDICATIONS: Gabapentin, morphine, Zofran, . ALLERGIES: No known drug allergies. SOCIAL HISTORY: No alcohol or tobacco. However, he does use methamphetamines. FAMILY HISTORY: Noncontributory. REVIEW OF SYSTEMS: Constitutional: No fever, chills, or night sweats. Skin: No rashes, lumps, or itching. HEENT: No headache or hearing or vision changes. Breasts: No lumps, pain, or discharge. Pulmonary: No cough, sputum, or shortness of breath. Cardiovascular: No chest pain, tightness, or palpitations. Gastrointestinal: No nausea, vomiting, or diarrhea. Genitourinary: No dysuria, frequency, or urgency. Musculoskeletal: No joint swelling, muscle pain, or trauma. Neurologic: No dizziness, fainting, or seizures. PHYSICAL EXAMINATION: GENERAL: The patient is in no acute distress. VITAL SIGNS: Temperature is 97.5 degrees Fahrenheit, pulse 58, respiratory rate 20, blood pressure 107/72, and pulse oximetry 95% on room air. PULMONARY: Decreased breath sounds. CARDIOVASCULAR: Regular rhythm. GASTROINTESTINAL: Abdomen is soft, nontender, and nondistended. EXTREMITIES: There is 1+ edema. LABORATORY DATA: WBC 4, hemoglobin , hematocrit 40, and platelet count 150,000. BUN of 10 and creatinine 0.8. ASSESSMENT: 1. Leukopenia, potentially secondary to underlying infection. 2. Anemia secondary to chronic disease. 3. Monocytosis, likely secondary to infection as well. 4. Hypoalbuminemia and malnutrution. 5. Methamphetamine abuse. 6. Altered mental status. RECOMMENDATIONS: 1. Monitor counts. 2. Transfuse as needed. 3. Peripheral smear has been ordered. 4. Social service consultation. 5. TSH has been ordered. 6. DVT prophylaxis with SCDs. 7. GI prophylaxis as needed. 8. Pain control. 9. Followup on Nephrology, Pulmonary, Neurology, and pain management recommendations. 10. Discussed with staff. 11. I have ordered for hepatitis as well as ultrasound of the abdomen to rule out hepatosplenomegaly. Jackson Lawson M.D. DR: LINDSAY JOB#: [id number] CC:
[2016-07-26] VITALS: BP 114/68
[2016-07-26 09:15] VITALS: BP 106/66
[2016-07-26 09:45] LABS: HIV-1 ANTIBODY Positive (Negative); HIV-2 ANTIBODY Negative (Negative)
--- NOTE | 2016-07-26 10:17 | General Progress Note ---
Assessment/Plan Problem List: (1) Methamphetamine abuse ICD Codes: F15.10 - Other stimulant abuse, uncomplicated SNOMED: 107578091 (2) Altered mental status Assessment & Plan: The patient will be continued on Ativan and Neurontin The patient was discussed with Dr. Rand and Dr. Rand concurred. ICD Codes: R41.82 - Altered mental status, unspecified SNOMED: 527790888 Subjective Date patient seen: Jul 26, 2016 Time patient seen: 09:15 - am Allergies: Coded Allergies: No Known Allergies (Unverified , 07/24/16) Subjective REVIEW OF SYSTEMS: Denies rash, fever, chills, sweating, dizziness, drowsiness, no change in hearing or weight. No shortness of breath or chest pain. No nausea, vomiting, diarrhea, blood in the stool or urine. No bowel or bladder incontinence. SUBJECTIVE: He continues to say he is doing well and would like to be discharged. No signs of withdrawals. Objective Last 24 Hour Vital Signs Date Time Temp Pulse Resp B/P Pulse Ox O2 Delivery O2 Flow Rate FiO2 07/26/16 09:54 97.5 07/26/16 09:15 97.5 69 20 106/66 98 Room Air 07/26/16 00:00 97.8 77 18 114/68 98 07/25/16 20:00 97.6 75 16 112/70 96 07/25/16 16:00 98.4 73 20 114/72 95 Room Air 07/25/16 12:00 98.1 77 20 111/71 96 Intake and Output 07/25/16 07/26/16 19:00 07:00 Intake Total 840 ml 630 ml Balance 840 ml 630 ml Intake Oral 240 ml 480 ml IV Total 600 ml 150 ml # Voids 2 2 Laboratory Tests 07/25/16 12:00: Hepatitis A IgM Antibody Negative, Hepatitis B Surface Antigen Negative, Hepatitis B Core IgM Antibody Negative, Hepatitis C Antibody 0.4, HIV (1&2) Antibody Rapid Preliminary positiveH Height (Feet): 5 Height (Inches): 11.00 Weight (Pounds): 180 Objective PHYSICAL EXAMINATION: GENERAL: Alert, awake and oriented x3. HEENT: PERRLA. NECK: Range of motion is full in all directions. No tenderness. LUNGS: Clear. HEART: Regular. ABDOMEN: Benign. EXTREMITIES: No cyanosis. No clubbing. No edema. ANTOINE JIMENEZ Jul 26, 2016 10:17
--- NOTE | 2016-07-26 11:10 | General Progress Note ---
Assessment/Plan Assessment/Plan ASSESSMENT: 1. Leukopenia, potentially secondary to underlying infection. has HIV 2. Anemia secondary to chronic disease. 3. Monocytosis, likely secondary to infection as well. 4. Hypoalbuminemia and malnutrition. 5. Methamphetamine abuse. 6. Altered mental status. 7. HIV RECOMMENDATIONS: 1. Monitor counts. 2. Transfuse as needed, hgb >7 3. Peripheral smear has been ordered. 4. Social service consultation. 5. TSH has been ordered. 6. DVT prophylaxis with SCDs. 7. GI prophylaxis as needed. 8. Pain control. 9. Followup on Nephrology, Pulmonary, Neurology, and pain recs. 10. Discussed with staff. Thank you, Jackson Lawson MD Subjective Constitutional: Reports: no symptoms HEENT: Reports: no symptoms Cardiovascular: Reports: no symptoms Respiratory: Reports: no symptoms Gastrointestinal/Abdominal: Reports: poor appetite Genitourinary: Reports: no symptoms Neurologic/Psychiatric: Reports: no symptoms Endocrine: Reports: no symptoms Hematologic/Lymphatic: Reports: anemia Allergies: Coded Allergies: No Known Allergies (Unverified , 07/24/16) Subjective no events overnight, has been stable, without complaints Objective Last 24 Hour Vital Signs Date Time Temp Pulse Resp B/P Pulse Ox O2 Delivery O2 Flow Rate FiO2 07/26/16 09:54 97.5 07/26/16 09:15 97.5 69 20 106/66 98 Room Air 07/26/16 00:00 97.8 77 18 114/68 98 07/25/16 20:00 97.6 75 16 112/70 96 07/25/16 16:00 98.4 73 20 114/72 95 Room Air 07/25/16 12:00 98.1 77 20 111/71 96 Intake and Output 07/25/16 07/26/16 19:00 07:00 Intake Total 840 ml 630 ml Balance 840 ml 630 ml Intake Oral 240 ml 480 ml IV Total 600 ml 150 ml # Voids 2 2 Laboratory Tests 07/25/16 12:00: Hepatitis A IgM Antibody Negative, Hepatitis B Surface Antigen Negative, Hepatitis B Core IgM Antibody Negative, Hepatitis C Antibody 0.4, HIV (1&2) Antibody Rapid Preliminary positiveH Height (Feet): 5 Height (Inches): 11.00 Weight (Pounds): 180 General Appearance: no apparent distress EENT: normal ENT inspection Neck: normal alignment Cardiovascular: normal rate Respiratory/Chest: lungs clear Abdomen: normal bowel sounds Extremities: non-tender Edema: no edema noted Leg (L), no edema noted Leg (R) Edema: mild edema Neurologic: alert Skin: warm/dry Jackson Lawson Jul 26, 2016 11:10
--- NOTE | 2016-07-26 11:33 | General Progress Note ---
Assessment/Plan Status: stable Assessment/Plan status: Dehydration- resolved Amphetamine abuse leading to above Sxs ( urine + for amphetamines and benzodiazepams) h/o Left Ventricular Aneurysm repair 1998 at [facility] Plan: Can DC IV- ?DC ? Drug Rehab / Psych??? Subjective ROS Limited/Unobtainable: No Allergies: Coded Allergies: No Known Allergies (Unverified , 07/24/16) Objective Last 24 Hour Vital Signs Date Time Temp Pulse Resp B/P Pulse Ox O2 Delivery O2 Flow Rate FiO2 07/26/16 09:54 97.5 07/26/16 09:15 97.5 69 20 106/66 98 Room Air 07/26/16 00:00 97.8 77 18 114/68 98 07/25/16 20:00 97.6 75 16 112/70 96 07/25/16 16:00 98.4 73 20 114/72 95 Room Air 07/25/16 12:00 98.1 77 20 111/71 96 Intake and Output 07/25/16 07/26/16 18:59 06:59 Intake Total 840 ml 705 ml Balance 840 ml 705 ml Intake Oral 240 ml 480 ml IV Total 600 ml 225 ml # Voids 2 2 Laboratory Tests 07/25/16 12:00: Hepatitis A IgM Antibody Negative, Hepatitis B Surface Antigen Negative, Hepatitis B Core IgM Antibody Negative, Hepatitis C Antibody 0.4, HIV (1&2) Antibody Rapid Preliminary positiveH Height (Feet): 5 Height (Inches): 11.00 Weight (Pounds): 180 General Appearance: no apparent distress Objective PE benign NATALIE HILL Jul 26, 2016 11:33
--- NOTE | 2016-07-26 15:09 | Pulmonology Progress Note ---
Assessment/Plan Problems: (1) Altered mental status (2) Amphetamine adverse reaction Assessment/Plan improved ok to dc to drug rehab Subjective ROS Limited/Unobtainable: No Interval Events: pt really wants to leave Allergies: Coded Allergies: No Known Allergies (Unverified , 07/24/16) Objective Last 24 Hour Vital Signs Date Time Temp Pulse Resp B/P Pulse Ox O2 Delivery O2 Flow Rate FiO2 07/26/16 13:45 97.5 07/26/16 09:15 97.5 69 20 106/66 98 Room Air 07/26/16 00:00 97.8 77 18 114/68 98 07/25/16 20:00 97.6 75 16 112/70 96 07/25/16 16:00 98.4 73 20 114/72 95 Room Air Intake and Output 07/25/16 07/26/16 19:00 07:00 Intake Total 840 ml 630 ml Balance 840 ml 630 ml Intake Oral 240 ml 480 ml IV Total 600 ml 150 ml # Voids 2 2 General Appearance: WD/WN HEENT: normocephalic, anicteric Respiratory/Chest: chest wall non-tender, lungs clear Cardiovascular: normal peripheral pulses, normal rate Abdomen: normal bowel sounds, soft, non tender Genitourinary: normal external genitalia Extremities: no clubbing Skin: no rash Current Medications Medications (Trade) Dose Ordered Sig/Britany Route PRN Reason Start Time Stop Time Status Last Admin Dose Admin Acetaminophen (Tylenol) 650 mg Q4H PRN ORAL fever 07/24/16 09:30 08/23/16 09:29 Dextrose STAT PRN IV Hypoglycemia 07/24/16 09:30 08/23/16 09:29 Dextrose/Sodium Chloride (D5ns) 1,000 ml @ 75 mls/hr [id number] IV 07/24/16 10:50 08/23/16 10:49 07/25/16 17:44 Gabapentin (Neurontin) 100 mg THREE TIMES A DAY ORAL 07/24/16 10:00 08/23/16 09:59 07/26/16 12:46 Lorazepam (Ativan 2mg/ml 1ml) 0.5 mg Q4H PRN IV For Anxiety 07/24/16 09:30 07/31/16 09:29 Lorazepam (Ativan) 2 mg Q4H PRN ORAL AGITATION 07/24/16 09:00 07/31/16 08:59 Morphine Sulfate (Morphine Sulfate) 1 mg Q4H PRN IVP For Pain 07/24/16 09:30 07/31/16 09:29 Ondansetron HCl (Zofran) 4 mg Q6H PRN IVP Nausea & Vomiting 07/24/16 09:30 08/23/16 09:29 Polyethylene Glycol (Miralax) 17 gm HSPRN PRN ORAL Constipation 07/24/16 09:30 08/23/16 09:29 Zolpidem Tartrate (Ambien) 5 mg HSPRN PRN ORAL Insomnia 07/24/16 09:30 08/23/16 09:29 EDWARD ALFARO Jul 26, 2016 15:09
--- NOTE | 2016-07-26 15:47 | Neurology Progress Note ---
Interim History Interim History ROS Limited/Unobtainable: No Interim History Mr. Marquez feels well. The mind is clear. The body is strong. He has had no palpitations. He has had no paranoia. He denies any new neurologic symptoms. Plans are to go to a friends home today. Review of Systems Neuro Review of Systems Benign. Objective Physical Exam Last Vital Signs Date Time Temp Pulse Resp B/P Pulse Ox O2 Delivery O2 Flow Rate FiO2 07/26/16 13:45 97.5 07/26/16 09:15 69 20 106/66 98 Room Air Neurologic Exam Objective PHYSICAL EXAMINATION: GENERAL: He is a well-developed, well-nourished, and pleasant gentleman, lying in bed, in no acute distress. HEAD: Normocephalic and atraumatic. NECK: No neck rigidity was observed. EENT: Examination benign. NEUROLOGICAL EXAMINATION: MENTAL STATUS EXAMINATION: He was alert and awake. He was oriented to person, place, and time. He was able to recall 3/3 words immediately after 1 minute and 3 minutes. He was able to remember presidents Obama through [place]. His mathematical skills were good. His visuospatial function was preserved. SPEECH: He had no dysarthria. LANGUAGE: He had no aphasia. CRANIAL NERVE EXAMINATION: II: The visual gilmore were intact to confrontation testing. III, IV & : The external ocular movements were full and the pupils 3 mm in diameter, equal round, regular, and reactive to light. V: He had normal facial sensations and the temporales, masseters, and pterygoids functioned normally. VII: He had normal facial expressions and no facial asymmetry. VIII: He was able to hear well bilaterally and had no nystagmus. IX: The palate moved symmetrically on phonation. X: He had no hoarseness of voice. XI: The sternocleidomastoids and trapezii functioned normally. XII: The tongue was in the midline without any fasciculations or atrophy. MOTOR SYSTEM: The tone was normal in all four extremities. Examination of muscle mass revealed no focal wasting. Examination of power revealed grade 5/5 power in all muscle groups tested. SENSORY EXAMINATION: He has intact sensations to pinprick, light touch and graphesthesia. COORDINATION: He performed well on hcdzsf-[id number]-wisp and bdmu-so-yehm testing. On Romberg test, he swayed but did not fall to one side or the other. REFLEXES: 0 at the biceps, triceps, brachioradialis, knees, and ankles. The plantar responses were flexor bilaterally. STANCE: He had a minimally wide-based, but stable stance. GAIT: He walked with a minimally wide-based, but stable gait. Impression/Recommendations Diagnostic Impression 1. Mr. Tanmay Marquez is a 50-year-old, right-handed, gentleman, who does have prior history of human-immunodeficiency virus disease, left ventricular aneurysm - status post surgical repair, and methamphetamine use for numerous years, who was binging on methamphetamine a few days prior to admission and then came in with paranoia and palpitations. 2. He feels much better and feels that he is back to his normal self. There is no paranoia and he is free of palpitations. 3. The neurological examination is essentially benign except for globally absent deep tendon reflexes and a swaying on Romberg test. 4. Laboratory data revealed a relatively normal CBC, and relatively normal chemistry panel. No signs of urinary tract infection were seen. However the urine toxicology screen is positive for amphetamines and benzodiazepines. 5. The patient's history and neurological examination are most compatible with methamphetamine use associated with paranoia and palpitations that have now resolved. Recommendations 1. At this point in time, no further neurological intervention is required. 2. Mobilize rapidly. 3. Patient again told about the ills of methamphetamine use. Araceli Candelaria M.D., M.S.P.H. ARACELI CANDELARIA Jul 26, 2016 15:47
--- NOTE | 2016-07-27 08:29 | Diagnostic Imaging Report ---
Indication:Abdominal pain Technique: Grayscale and duplex Doppler imaging of the abdomen performed. Comparison: None Findings: The liver, demonstrated part of the pancreas, gallbladder, aorta and IVC, both kidneys, appear unremarkable. The spleen is prominent measuring about 14 cm. There is no biliary ductal dilatation identified. Doppler evaluation of the main portal vein shows patency. There is no ascites. No hydronephrosis seen. Impression: Splenomegaly. Study is negative otherwise
--- NOTE | 2016-07-27 09:08 | Discharge Summary ---
Discharge Summary Hospital Course Date of Admission Jul 24, 2016 at 04:26 Date of Discharge Jul 26, 2016 at 16:30 Admitting Diagnosis drug reaction, dehydration, ms HPI Tanmay Marquez is a 50 year old male who was admitted on Jul 24, 2016 at 04 :26 for Drug Reaction,Dehydration Hospital Course [id number] Discharge Discharge Disposition Patient was discharged to Home (01) Discharge Diagnoses: Shilpi Rosales NP Jul 27, 2016 09:08
--- NOTE | 2016-07-28 23:27 | Discharge Summary 2 SIG ---
DATE OF ADMISSION: 07/24/2016 DATE OF DISCHARGE: 07/26/2016 CONSULTANTS: 1. Eufemia Cates M.D. 2. Christiano Candelaria M.D. 3. Brown Vasques M.D. 4. Chaparro Lawson M.D. 5. UNRULY Willard BRIEF HOSPITAL COURSE: The patient is a 50-year-old male, who presented to ED with behavioral complaints and states that he has been having increased paranoid feelings. He admitted to taking methamphetamine. He feels scared. He was given IV hydration. Urine toxicology showed positive for amphetamine and benzodiazepine. Dr. Candelaria was consulted. He has history of HIV and left ventricular aneurysm, status post surgery. Neurology examination was normal except for loss of deep tendon reflexes. He was given education about abuse of methamphetamine use and advised avoidance. He was given IV hydration. Dr. Rand was consulted. The patient was given Ativan every four hours as needed agitation and Neurontin [address] Lawson was consulted for evaluation of leukopenia, which is potentially secondary to underlying infection. Anemia was secondary to chronic disease. The patient feels better and was back to normal self, no paranoia, and free of palpitations. Social service was called in and the patient was eventually discharged home. FINAL DIAGNOSES: 1. Acute toxic encephalopathy, secondary to methamphetamine use. 2. Dehydration. 3. Anemia of chronic disease. 4. Leukopenia, secondary to underlying infection. 5. Hypoalbuminemia. 6. Methamphetamine abuse. Eufemia Cates M.D. I have been assigned to dictate discharge summary on this account and I was not involved in the patient's management. Shilpi Rosales N.P. DR: ABRIL JOB#: [id number] CC: [email or web address]
--- NOTE | 2016-08-03 17:27 | Diagnostic Imaging Report ---
APPROVED REPORT CPT Code: 75213 Present Symptoms Comments: R/O DVT BILATERAL: Imaging reveals a patent deep venous system bilaterally. There is no evidence of thrombus within the femoral, popliteal or tibial segments. The greater saphenous veins are also within normal limits. Doppler indicates normal spontaneous flow within these segments.
== END 2016-07-26 16:30 | disposition home or self-care (01) | DRG 917 ==
LOC: EMR 02:26 → 3E 04:26 → EDBEDREQ 07:49 → 3E 10:25
DX: T43.621A Poisoning by amphetamines, accidental (unintentional), initial encounter (principal); G92 Toxic encephalopathy; E46 Unspecified protein-calorie malnutrition; E86.0 Dehydration; Y92.019 Unspecified place in single-family (private) house as the place of occurrence of the external cause; F15.10 Other stimulant abuse, uncomplicated; E88.09 Other disorders of plasma-protein metabolism, not elsewhere classified; D63.8 Anemia in other chronic diseases classified elsewhere; D72.819 Decreased white blood cell count, unspecified; I25.10 Atherosclerotic heart disease of native coronary artery without angina pectoris; Z95.1 Presence of aortocoronary bypass graft; R00.2 Palpitations; F22 Delusional disorders
CPT/HCPCS: 36415; 76700; 80048; 80053; 80061; 80300; 81001; 82550; 82977; 83735; 84100; 84443; 84550; 85025; 86140; 86689; 86703; 86705; 86709; 86803; 87340; 93970; J2250; Q2036